=== PATIENT | female | born 1995 | race Two or more races ===

== ENCOUNTER 2020-10-12 09:27 | Outpatient (CLI) | payer OTHER | END 2020-10-12 09:30 | disposition home or self-care (01) | LOC: LAB 09:27 | PROVIDERS: ATTEND Pediatrics Neonatal-Perinatal Medicine | DX: R05 Cough (principal); R06.02 Shortness of breath; Z03.818 Encounter for observation for suspected exposure to other biological agents ruled out ==

== ENCOUNTER 2020-10-18 13:48 | Outpatient (CLI) | payer OTHER | END 2020-10-18 15:00 | disposition home or self-care (01) | LOC: LAB 13:48 | PROVIDERS: ATTEND Pediatrics Neonatal-Perinatal Medicine | DX: Z03.818 Encounter for observation for suspected exposure to other biological agents ruled out (principal) ==

== ENCOUNTER → 2020-10-22 15:53 | Outpatient (CLI) | payer OTHER | END | disposition home or self-care (01) | LOC: LAB 15:53 | PROVIDERS: ATTEND Pediatrics Neonatal-Perinatal Medicine | DX: Z03.818 Encounter for observation for suspected exposure to other biological agents ruled out (principal) ==